=== PATIENT | female | born 2000 | race Caucasian/White ===

== ENCOUNTER → 2023-11-14 | Outpatient (CLI) | payer SELFPAY ==
[2023-11-21 19:37] LABS: HPV Reflexed? NOT INDICATED
== END | disposition home or self-care (01) ==
LOC: LABSPEC 17:21
PROVIDERS: PCP Nurse Practitioner Family; Referring Provider Nurse Practitioner Family; Visit Provider Nurse Practitioner Family
DX: Z12.4 Encounter for screening for malignant neoplasm of cervix (principal); N76.0 Acute vaginitis
CPT/HCPCS: 87070; 87205; 88175; G0145

== ENCOUNTER → 2024-10-05 | Outpatient (CLI) | payer OTHER, SELFPAY ==
[2024-10-05 13:14] LABS: hCG Titer Quant., Serum 2103 mIU/mL (<9 non-preg)
[2024-10-06 04:07] LABS: PROGESTERONE 26.8 ng/mL (.)
== END | disposition home or self-care (01) ==
PROVIDERS: PCP Nurse Practitioner Family; Referring Provider Obstetrics & Gynecology; Visit Provider Obstetrics & Gynecology
DX: O09.299 Supervision of pregnancy with other poor reproductive or obstetric history, unspecified trimester (principal); Z3A.00 Weeks of gestation of pregnancy not specified
CPT/HCPCS: 36415; 84144; 84702

== ENCOUNTER → 2024-10-07 | Outpatient (CLI) | payer OTHER, SELFPAY ==
[2024-10-07 17:40] LABS: hCG Titer Quant., Serum 5046 mIU/mL (<9 non-preg)
== END | disposition home or self-care (01) ==
PROVIDERS: PCP Nurse Practitioner Family; Referring Provider Obstetrics & Gynecology; Visit Provider Obstetrics & Gynecology
DX: Z34.90 Encounter for supervision of normal pregnancy, unspecified, unspecified trimester (principal)
CPT/HCPCS: 36415; 84702